=== PATIENT | female | born 1955 | race Caucasian/White ===

== ENCOUNTER 2024-07-26 13:38 | Emergency (ER) | payer MEDICARE, BC, SELFPAY ==
[2024-07-26 13:53] VITALS: BP 129/89
[2024-07-26 14:15] VITALS: BMI 21.6
--- NOTE | 2024-07-26 14:48 | ED.GENMED ---
History of Present Illness
General
Chief Complaint: Chest Pain
Source: patient
Exam Limitations: none
Time Seen by Provider: 07/26/24 14:21
Nursing documentation reviewed up to this point in time: agreed with
History of Present Illness
History of Present Illness:
Patient with history of gallbladder cancer, diagnosed in February 2024, with metastases to liver, status post gallbladder biopsy laparoscopically 2 days ago, presents ED secondary to sudden set of upper abdominal pain, while she was at home, associated
with shortness of breath, lasting approxi-5 minutes. Denies nausea or vomiting. Denies fever or chills. Patient has been experiencing intermittent abdominal pain/discomfort since the procedure 2 days ago. In addition, patient has not had any
bowel movements since the procedure. Denies loss of appetite. Denies back pain. Denies difficulty with urination. Denies leg pain or swelling.
Past History
Past History
ED Past Medical History: Cancer (Multiple Myeloma) and Other (PNA)
ED Past Surgical History: (X 4)
Social History
Tobacco: Former smoker
Alcohol: Occasional
Personal:
Living: with family
Review of Systems
Review of Systems
Allergies reviewed?: Yes
All Other Systems: ROS reviewed and negative except as documented in HPI and ROS
Constitutional: Reports no symptoms; Denies fever or chills
Respiratory: Reports trouble breathing; Denies cough
Cardiac: Reports palpitations
ABD/GI: Reports abdominal pain; Denies vomiting or diarrhea
: Reports no symptoms
Musculoskeletal: Reports no symptoms; Denies back pain
Skin: Reports no symptoms
Neurological: Reports no symptoms; Denies dizzy, headache or weakness
Phy Exam
Physical Exam
Physical Exam:
Physical Exam
General: mild distress, not acutely ill. afebrile. thin appearing. tachycardic.
Head: nc/at. eomi
Neck: supple. no meningeal signs.
Heart: tachycardic, no murmur. equal radial pulses.
Lungs: no acute respiratory distress. clear bilaterally
Abdomen: normal bowel sounds. mild ecchymosis noted over umbilicus with diffuse tenderness to palpation.
Neuro: alert and oriented x3. no focal neurological deficits
Skin: no rash
Psychiatric: well kept. interactive and cooperative
Extremities: no edema. no calf tenderness.
Scores
Heart Score for Chest Pain Patients
STEMI patient?: Not applicable
Course
Orders/Labs/Results
Orders:
Orders
07/26/24 13:40
Electrocardiogram (*1) Urgent
Reason for Study: Chest Pain
EKG- Treatment ONCE
07/26/24 13:48
Electrocardiogram (*1) Urgent
Reason for Study: Shortness of Breath
07/26/24 14:37
Complete Blood Count/With Diff Urgent
Comprehensive Metabolic Panel Urgent
Lipase Urgent
Comment: ADD ON
Troponin I Urgent
07/26/24 14:47
CT Abd/pel W Iv And Oral Contr Urgent
Comment:
Reason For Exam: periumbilical pain, s/p lap biopsy of gallbladder
Iohexol [Omnipaque] See Protocol PO NOW STA
07/26/24 14:48
0.9% Sodium Chloride 1000 ml [Nss] 1,000 ml IV BOLUS
Acetaminophen [Tylenol] 650 mg PO NOW STA
07/26/24 18:17
Add On- LAB Urgent
Tests Added?: lipase
Abnormal Lab Results
07/26/24
14:37
RBC 3.18 L 10^6/uL
(4.20-5.40)
Hgb 9.8 L g/dL
(12.0-16.0)
Hct 29.5 L %
(37.0-47.0)
RDW 15.0 H %
(11.5-14.5)
Absolute Lymphs (auto) 0.8 L 10^3/uL
(1.2-3.4)
Neutrophils % 78.8 H %
(42.2-75.2)
Lymphocytes % 11.2 L %
(20.5-51.1)
Creatinine 0.5 L mg/dL
(0.6-1.0)
Glucose 145 H mg/dl
(70-99)
Alkaline Phosphatase 290 H U/L
(38-126)
Total Protein 5.7 L g/dl
(6.3-8.2)
07/26/24 14:37
07/26/24 14:37
Vital Signs
Initial and Last Documented VS:
Initial Vital Signs
Pulse Resp BP
118 20 129/89
07/26/24 13:53 07/26/24 13:53 07/26/24 13:53
Last Documented Vital Signs
Pulse Resp BP Pulse Ox
119 29 109/73 94
07/26/24 20:00 07/26/24 15:00 07/26/24 18:00 07/26/24 18:15
MDM/Problems Addressed
MDM/Problems Addressed:
CT abdomen pelvis report reviewed and discussed with Dr. Lou, on-call surgery. Does not feel that patient has any CT findings concerning for acute pathology, requiring urgent surgical evaluation/treatment. Advises close follow-up with her
surgeon at [facility].
Discussed treatment options with the patient, including potential observation overnight for continued hydration and symptomatic treatment. However, at this point, patient feels comfortable going home and would like to be discharged. Patient will
follow-up with her physicians at [facility], or return to ED with worsening symptoms.
Patient does remain mildly tachycardic with heart rate persistently in the low 110 range. However, patient does not have any chest pain or shortness of breath, nor any sensation of chest palpitations. In addition, as patient has focal,
reproducible discomfort in her upper abdomen, pulm embolism will be less likely. Tachycardia, likely combination of dehydration along with ongoing abdominal discomfort.
Patient will be given copy of blood work as well as CT scan on disc, to be reviewed with her physicians at [facility].
*Critical Care Note
Total Time (30-74mins, 75-104mins- exclusive of procedures): Not Applicable
ED Attending Note
-
Portions of this chart may have been created with voice recognition software.� Occasional wrong word or��sound alike� substitutions may have occurred due to the inherent limitations of voice recognition software.
Discharge Plan
Departure
Patient Disposition: Home (Routine Discharge)
Date of Disposition: 07/26/24
Time of Disposition: 19:50
Patient with high blood pressure during this ER visit?: Yes
Discharge Problem:
Abdominal pain
Instructions: Abdominal Pain
Prescriptions:
No Action
doxycycline hyclate 100 mg capsule
100 mg PO BID Qty: 19 0RF
cefuroxime axetil 500 mg tablet
500 mg PO BID 10 Days Qty: 19 0RF
benzonatate 200 mg capsule
200 mg PO BID PRN (Reason: cough) Qty: 10 0RF
Referrals:
UNKNOWN - PT DOES,NOT KNOW [Family Provider] -
Activity Restrictions/Additional Instructions:
As discussed, please follow-up with your physicians at [facility] for reevaluation. Please consider return to ED with worsening symptoms.
Interventions
Interventions:
*Risk Screen - Suicide Last Done: 07/26/24 14:17
*General Assessment Last Done: 07/26/24 14:17
*Neglect/Abuse Screening Last Done: 07/26/24 14:17
ED- Fall Risk Assessment Last Done: 07/26/24 14:17
*ED COVID-19 Vaccine History Last Done: 07/26/24 14:17
*Nursing Disposition Last Done: 07/26/24 20:00
ED- Cardiac Assessment Last Done: 07/26/24 14:17
Discharge Date and Time
Discharge Date/Time: 07/26/24 20:00
Print Language: CHINESE
[2024-07-26 14:50] LABS: % Basophils 0.3 % (0-2); % Eosinophils 0.6 % (0-6); % Immature Granulocytes 0.4 % (0-0.5); % Lymphocytes 11.2 % (20.5-51.1); % Monocytes 8.7 % (1.7-9.3); % Neutrophils 78.8 % (42.2-75.2); Absolute Lymphocytes 0.8 10^3/uL (1.2-3.4); Absolute Monocytes 0.6 10^3/uL (0.1-0.6); Absolute Neutrophils 5.4 10^3/uL (1.4-6.5); Hematocrit 29.5 % (37.0-47.0); Hemoglobin 9.8 g/dL (12.0-16.0); Mean Corp Hgb Conc. 33.2 g/dL (33.0-37.0); Mean Corpuscular Hgb 30.8 pg (27.0-31.0); Mean Corpuscular Volume 92.8 fL (81.0-99.0); Nucleated Red Blood Cells % 0 %; Platelet Count 167 10^3/uL (130-400); Red Blood Cell Count 3.18 10^6/uL (4.20-5.40); White Blood Cell Count 6.8 10^3/uL (4.8-10.8)
[2024-07-26] MEDS: OMNIPAQUE 50 ML PO (14:54)
[2024-07-26] MEDS: NSS 1000 IV (14:55)
[2024-07-26] MEDS: TYLENOL 650 MG PO (14:55)
[2024-07-26 15:00] VITALS: BP 142/85
[2024-07-26 15:04] LABS: ALT (SGPT) 30 U/L (0-35); AST (SGOT) 31 U/L (14-36); Albumin 3.5 g/dl (3.5-5.0); Alkaline Phosphatase 290 U/L (38-126); Blood Urea Nitrogen 13 mg/dl (7-17); Calcium 9.1 mg/dl (8.4-10.2); Carbon Dioxide 25 mmol/L (22-30); Chloride 103 mmol/L (98-107); Estimated Creatinine Clearance 73 ml/min; Glucose 145 mg/dl (70-99); Sodium 140 mmol/L (135-145); Total Bilirubin 0.3 mg/dl (0.2-1.3); Total Protein 5.7 g/dl (6.3-8.2); eGFR > 60.00
[2024-07-26 15:14] LABS: Troponin I < 0.012 ng/ml
[2024-07-26 16:02] VITALS: BP 135/79
[2024-07-26 17:55] VITALS: BP 140/124
[2024-07-26 18:00] VITALS: BP 109/73
[2024-07-26 19:07] LABS: Lipase 104 U/L (23-300)
== END 2024-07-26 20:00 | disposition home or self-care (01) ==
LOC: EMR 13:38
PROVIDERS: EMERGENCY PHYSICIAN Emergency Medicine
DX: R10.10 Upper abdominal pain, unspecified (principal); R06.02 Shortness of breath; K85.90 Acute pancreatitis without necrosis or infection, unspecified; Z87.891 Personal history of nicotine dependence; C78.7 Secondary malignant neoplasm of liver and intrahepatic bile duct
CPT/HCPCS: 99284; 96360; 96361; 74177; 80053; 83690; 84484; 85025; 93005; Q9967